=== PATIENT | female | born 1935 | race Caucasian/White ===

== ENCOUNTER → 2017-02-25 | Outpatient (CLI) | payer OTHER | LOC: FIMAGING 11:02 | PROVIDERS: ATTEND Orthopaedic Surgery Orthopaedic Surgery of the Spine | DX: M41.86 Other forms of scoliosis, lumbar region (principal); M43.16 Spondylolisthesis, lumbar region; M51.36 Other intervertebral disc degeneration, lumbar region ==

== ENCOUNTER 2017-03-02 05:42 | Inpatient (IN) | payer OTHER ==
--- NOTE | 2017-02-26 13:25 | GHP ---
[f rep st] PREOP HISTORY AND PHYSICAL DATE OF ADMISSION: 03/02/2017 HISTORY: Jana is a very pleasant, 81-year-old woman who saw me for a second opinion regarding severe left lower extremity pain. A number of months ago, her pain gradually began and has worsened over time. She is having a severely difficult time with ambulation. Her pain starts in the left buttock, radiates to the lateral thigh, and to the anterior leg. Mainly in the L4 distribution. She also complains of plantar foot and heel pain on the left. The patient states she went to the emergency room and had an ultrasound because they were concerned about a DVT, but per her history and per the family history this was ruled out. She complains of hypersensitivity of the left anterior leg. The patient has had physical therapy and 2 epidural steroid injections without any relief. On a 1-10 scale she rates her daily pain a 7-9. 100% of her symptoms are referable to the left lower extremity. SOCIAL HISTORY: Patient is . She lives alone. She denies use of tobacco and alcohol. PAST MEDICAL HISTORY: Type 2 diabetes mellitus, osteoarthritis, hypothyroidism , hypercholesterolemia, and hypertension. PAST SURGICAL HISTORY: Appendectomy and hysterectomy. ALLERGIES: Levaquin. MEDICATIONS: Metformin, amlodipine, levothyroxine, Levophed, enalapril, vitamin D3, and Vicodin. REVIEW OF SYSTEMS: 10-point review is negative for any pertinent positives. PHYSICAL EXAM: GENERAL: The patient is 4 feet 11 inches tall and weighs 135 pounds. She is alert and oriented x3. CARDIAC: Regular rate and rhythm without detectable murmur, rub, or gallop. LUNGS: Clear to auscultation. She has no wheezing or rhonchi. NEUROLOGIC: Strength of bilateral lower extremities to be 5/5 throughout. Light touch is diminished in the left medial leg and lateral leg. Patellar reflex on the left is 1/4. Right patellar reflex is 2+ over 4. Bilateral Achilles reflexes are 2/4. The patient is very hypersensitive to touch along the medial left leg in the L4 distribution. Straight leg raising is negative x2 for radiculopathy. Lumbar spine is tender to palpation near the L4-5 junction. She is exquisitely tender in the left sciatic notch. She does have a mild scoliosis on exam as well. Her gait shows a very forward flexed position. RADIOGRAPHIC STUDIES: MRI shows a grade 1 degenerative spondylolisthesis at L4- 5 with foraminal stenosis on the left. She has profound central stenosis at L4- 5 with what appears to be a left L4-5 foraminal disk herniation. At L3-4, she has [id number] stenosis centrally. There is severe facet arthropathy at L4-5. IMPRESSION: 1. Profound spinal stenosis at lumbar 4-5 with left foraminal disk herniation. 2. Left lumbar 4 radiculopathy. 3. Grade 1 degenerative spondylolisthesis at lumbar 4-5 and scoliosis. 4. Onfm-[id number]-mwtktqje central stenosis at lumbar 3-4. PLAN: The patient has elected to undergo surgery. My recommendation would be an L3-4, L4-5 partial laminectomy, left L4-5 foraminal diskectomy, and posterior fusion with instrumentation using interspinous process devices. Potential risks, benefits, possible complications have been thoroughly discussed with the patient including, but not limited to, dural tear with CSF leak, meningitis, nerve root injury, partial or complete paralysis, infection, need for further surgery, lack of improvement of symptomatology, junctional breakdown, loosening of internal fixation, footdrop, DVT, PE, pneumonia, stroke , heart attack, hemorrhage, blindness, and . Patient's questions were answered thoroughly. I would anticipate a 2-night hospital stay, including the day and night of her surgery. /[id number]/MODL MTDD
[2017-03-02] MEDS ORDERED: ceFAZolin 2 GM/DEXTROSE 100 ML IV ONE (06:04)
[2017-03-02] MEDS ORDERED: LR 1,000 ML IV ONE (06:24)
[2017-03-02] MEDS ORDERED: LIDOCAINE 1% 2 ML INJ ID PRN (06:24)
--- NOTE | 2017-03-02 06:52 | PDANEPAE ---
ANE History of Present Illness Lumbar stenosis with left leg pain ANE Past Medical History - Cardiovascular History Hx Hypertension: Yes Hx CHF / Valvular Disease: Yes - Pulmonary History Hx COPD: No Hx Asthma/Reactive Airway Disease: No Hx Recent Upper Respiratory Infection: No Hx Oxygen in Use at Home: No Hx Sleep Apnea: No Sleep Apnea Screening Result - Last Documented: Negative - Neurologic History Hx Cerebrovascular Accident: No Hx Seizures: No Hx Dementia: No Neurologic History Comment: 9-10 yrs ago ?tia nothing since - Endocrine History Hx Diabetes: Yes Endocrine History Comment: type11 - Renal History Hx Renal Disorders: No - Liver History Hx Hepatic Disorders: No - Neurological & Psychiatric Hx Hx Neurological and Psychiatric Disorders: No - Cancer History Hx Cancer: No - Congenital Disorder History Hx Congenital Disorders: No - GI History Hx Gastrointestinal Disorders: No - Other Health History Other Health History: none - Chronic Pain History Chronic Pain: No - Surgical History Prior Surgeries: none ANE Review of Systems Review of Systems: - Exercise capacity METS (RN): 4 METS ANE Patient History - Allergies Allergies/Adverse Reactions: levofloxacin [From Levaquin] Allergy (Verified 02/24/17 11:41) JITTERY - Home Medications Home medications: home medication list seen and reviewed Home Medications: Calcium Carbonate [Oyster Shell Calcium 500 mg (*)] 500 mg PO DAILY 02/24/17 [ Last Taken 02/23/17] Cholecalciferol Vit D3 [Vitamin D3 2000 units tab (OTC)] 2,000 units PO DAILY [Last Taken 02/23/17] Enalapril Maleate [Vasotec 20 MG (*)] 40 mg PO DAILY 02/24/17 [Last Taken 04:15] Gabapentin [Neurontin 100 MG (*)] 100 mg PO HS 02/24/17 [Last Taken Unknown] Hydrocodone/Acetaminophen [[place] 5/325 (*)] 1 each PO HS PRN 02/24/17 [Last Taken Unknown] Levothyroxine [Synthroid 75 mcg (*)] 75 mcg PO DAILY06 02/24/17 [Last Taken 08/14 04:15] Lovastatin 20 mg PO DAILY 02/24/17 [Last Taken 03/01/17 20:00] amLODIPine BESYLATE [Norvasc 2.5 mg (*)] 2.5 mg PO DAILY 02/24/17 [Last Taken 04:15] metFORMIN HCL [Glucophage 500 mg (*)] 500 mg PO BIDMEAL 02/24/17 [Last Taken 07/17 20:00] - NPO status NPO Since - Liquids (Date): 03/01/17 NPO Since - Liquids (Time): 23:59 NPO Since - Solids (Date): 03/01/17 NPO Since - Solids (Time): 23:59 - Anes Hx Anes Hx: no prior problems (Last anesthesia about 30 years ago) - Smoking Hx Smoking Status: Never smoked - Family Anes Hx Family Anes Hx: neg - N/A Family Hx Anesthesia Complications: none ANE Labs/Vital Signs - Vital Signs Blood Pressure: 153/91 Heart Rate: 77 Respiratory Rate: 20 O2 Sat (%): 95 Height: 149.86 cm Weight: 60.781 kg ANE Physical Exam - Airway Neck exam: decreased ROM, short neck Mallampati Score: Class 3 Mouth exam: normal dental/mouth exam (Upper caps), small mouth opening - Pulmonary Pulmonary: no respiratory distress - Cardiovascular Cardiovascular: regular rate and rhythym - ASA Status ASA Status: II ANE Anesthesia Plan Anesthesia Plan: general endotracheal anesthesia (Will have glidescope)
[2017-03-02] MEDS ORDERED: CHLORHEXIDINE GLUC HIBICLENS 118 ML BTL TP ONE (07:04)
[2017-03-02] MEDS ORDERED: THROMBIN (BOVINE) 20,000 UNIT VIAL TP ONE (07:04)
[2017-03-02] MEDS ORDERED: methylPREDNISolone SOD SUCC 125 MG/2 ML VIAL ONE (07:05)
[2017-03-02] MEDS ORDERED: BUPIVACAINE 0.25% 30 ML SDV ONE (07:05)
[2017-03-02] MEDS ORDERED: BUPIVACAINE 0.5% 30 ML SDV ONE (07:05)
[2017-03-02] MEDS ORDERED: BACITRACIN 50,000 UNITS/10 ML SYR IRR ONE (07:06)
[2017-03-02] MEDS ORDERED: PROPOFOL 200 MG/20 ML VIAL ONE (07:09)
[2017-03-02] MEDS ORDERED: fentaNYL 100 MCG/2 ML INJ ONE ×3 (07:09→10:49)
[2017-03-02] MEDS ORDERED: PROPOFOL/EMULSION 500 MG/50 ML BOTTLE IV ONE (07:09)
[2017-03-02] MEDS ORDERED: REMIFENTANIL HCL 1 MG VIAL ONE (07:09)
--- NOTE | 2017-03-02 07:12 | PDHPUP ---
History & Physical Update H&P update statement: This history and physical update is based on an assessment of the patient which was completed after admission or registration (within 24 hours), but prior to the surgery/procedure. H&P update: H&P reviewed & patient examined, no change in patient's condition since H&P completed
[2017-03-02] MEDS ORDERED: BISACODYL 10 MG SUPP PR PRN (07:46)
[2017-03-02] MEDS ORDERED: ONDANSETRON DISINTEGRATING 4 MG TAB PO PRN (07:46)
[2017-03-02] MEDS ORDERED: ONDANSETRON 4 MG/2 ML VIAL IVP PRN ×2 (07:46→09:46)
[2017-03-02] MEDS ORDERED: D50W 25 GM/50 ML SYR IVP PRN (07:46)
[2017-03-02] MEDS ORDERED: MAGNESIUM HYDROXIDE 30 ML UDCUP PO PRN (07:46)
[2017-03-02] MEDS ORDERED: LACTULOSE 20 GM/30 ML UDCUP PO PRN (07:46)
[2017-03-02] MEDS ORDERED: diphenhydrAMINE 25 MG CAP PO PRN (07:46)
[2017-03-02] MEDS ORDERED: DEXAMETHASONE 4 MG/ML VIAL ONE (07:52)
[2017-03-02] MEDS ORDERED: HYDROCODONE/APAP 5/325 TAB PO PRN (07:53)
[2017-03-02] MEDS ORDERED: DIAZEPAM 5 MG TAB PO PRN (07:54)
[2017-03-02] MEDS ORDERED: DIAZEPAM 10 MG/2 ML SYR IVP PRN (07:54)
[2017-03-02] MEDS ORDERED: NS 1,000 ML IV SCH (08:00)
[2017-03-02] MEDS ORDERED: ROCURONIUM 50 MG/5 ML VIAL ONE (08:05)
[2017-03-02] MEDS ORDERED: LIDOCAINE 2% 5 ML SDV ONE (08:05)
[2017-03-02] MEDS ORDERED: ONDANSETRON 4 MG/2 ML VIAL ONE (08:10)
[2017-03-02] MEDS ORDERED: AVITENE POWDER 1 GM JAR TP ONE (08:11)
[2017-03-02] MEDS ORDERED: epHEDrine SULFATE 10 MG/ML SYR ONE (08:30)
[2017-03-02] MEDS ORDERED: D10W 250 ML PRN HYPOGLYCEMIA IV (09:00)
[2017-03-02] MEDS ORDERED: VASOPRESSIN 20 UNIT/ML VIAL ONE (09:41)
[2017-03-02] MEDS ORDERED: SUGAMMADEX SODIUM 200 MG/2 ML VIAL IVP ONE (09:42)
[2017-03-02] MEDS ORDERED: NALOXONE HCL 0.4 MG/ML INJ IVP PRN (09:46)
--- NOTE | 2017-03-02 09:57 | POSTOPPROG ---
Post Op Note Date of Operation: 03/02/17 Surgeon: Sara Beal [employer] Internship: Ambreen Tate SA Anesthesiologist: MD Les Anesthesia: GET(General Endotracheal) Pre-op Diagnosis: L3-5 stenosis with claudication, L4-5 spondylolisthesis Post-op Diagnosis: same Indication: LLE pain Procedure: L3-5 partial lami, post fusion, instrum with ISPD. Findings: severe stenosis L4-5 and mod stenosis L3-4 Inf/Abcess present in the surg proc area at time of surgery?: No Depth: Deep Incisional (Fascial) EBL: 50 cc Total fluids administered: 800 cc Complications: None. No changes in SSEPs, MEPs, and EMGs Drains: Erick Taveras
--- NOTE | 2017-03-02 10:24 | POSTANESTH ---
Post Anesthetic Evaluation Cardiovascular Status: Normal, Stable, Tx Hyper/Hypo-tension Respiratory Status: Normal, Stable Level of Consciousness/Mental Status: Can Participate in Eval, Alert and Oriented Pain Control: Adequate, Prn Tx Ordered Nausea/Vomiting Control: Adequate, Prn Tx Ordered Complications Possibly Related to Anesthesia: None Noted
[2017-03-02] MEDS: fentaNYL 100 MCG/2 ML INJ IVP PRN ×4 (10:25→10:56)
[2017-03-02] MEDS: INSULIN REGULAR HUMAN 100 UNIT/ML SC SCH ×3 (12:03→22:53)
[2017-03-02] MEDS: metFORMIN HCL 500 MG TAB PO SCH ×2 (12:15→18:48)
[2017-03-02] MEDS: CALCIUM CARBONATE 500 MG TAB PO SCH (12:16)
[2017-03-02] MEDS: ENALAPRIL MALEATE 20 MG TAB PO SCH (12:16)
[2017-03-02] MEDS: CHOLECALCIFEROL VIT D3 2,000 UNITS TAB/CAP PO SCH (12:16)
[2017-03-02] MEDS: PRAVASTATIN SODIUM 20 MG TAB PO SCH (12:18)
[2017-03-02] MEDS: SENNOSIDES/DOCUSATE SODIUM TAB PO SCH ×2 (12:19→22:25)
--- NOTE | 2017-03-02 12:33 | GOP ---
[f rep st] OPERATIVE REPORT DATE OF OPERATION: 03/02/2017 SURGEON: Sara Lombardi MD ANIMATION ARTIST: Conner Tate SA ANESTHESIA: General endotracheal intubation. ANESTHESIOLOGIST: Conner Saldana MD PREOPERATIVE DIAGNOSIS: 1. Profound spinal stenosis at L4-5 with grade 1 degenerative spondylolisthesis. 2. Mild to moderate L3-4 spinal stenosis. 3. Left L4 radiculopathy. POSTOPERATIVE DIAGNOSIS: 1. Profound spinal stenosis at L4-5 with grade 1 degenerative spondylolisthesis. 2. Mild to moderate L3-4 spinal stenosis. 3. Left L4 radiculopathy. PROCEDURE PERFORMED: L3-4 and L4-5 partial laminectomies, posterolateral arthrodesis, and nonsegmental instrumentation using interspinous process devices. FINDINGS: Profound spinal stenosis L4-5 and moderate at L3-4. There was also a grade 1 spondylolisthesis with instability and a left L4-5 facet joint cyst. ESTIMATED BLOOD LOSS: 50 cc. INDICATIONS: The patient is a pleasant 81-year-old woman who came to me for a second opinion. She has had a several month history of gradual worsening left lower extremity pain without any preceding trauma. Her pain begins in the buttock, radiates to the lateral thigh and typically toward the anterior leg. She has had 2 epidural steroid injections, as well as physical therapy. On MRI she was found to have profound spinal stenosis at L4-5 with a spondylolisthesis and then mild to moderate stenosis at L3-4. She has elected to undergo surgery. No guarantees were given in regard to surgical outcome. Potential risks, benefits, possible complications have been thoroughly discussed including , but not limited to, dural tear with CSF leak, meningitis, nerve root injury, partial or complete paralysis, infection, need for further surgery, junctional breakdown, lack of improvement in symptomatology, hematoma, cauda equina syndrome, DVT, PE, pneumonia, stroke, heart attack, hemorrhage, blindness, and . The patient's questions were answered thoroughly preoperatively, and no guarantees were given in regard to surgical outcome. DESCRIPTION OF PROCEDURE: After obtaining both written and verbal consent from the patient, she was brought to the operating room, where she underwent a general endotracheal intubation. Patient received IV antibiotics. Reynolds catheter was placed. A lateral fluoroscopic x-ray was obtained for localization. The lumbar spine was prepped and draped in normal sterile fashion. A lateral fluoroscopic x-ray showed the metallic marker to be at the L4-5 level. A time-out was performed with the entire operating room team confirming patient's name, date of , planned surgical procedure including levels. Antibiotics were given. A sterile prep and drape was performed. A 10-blade knife was then used to create a midline posterior longitudinal incision from L3 to L5. The incision was brought down through skin and subcutaneous tissues into the overlying dorsal fascia. Paraspinal muscles were stripped in a subperiosteal fashion. Again, another x-ray confirmed localization to the L4 spinous process. Under the microscope, a rongeur was used to remove the supraspinous and the interspinous ligaments at L3-4 and L4- 5. Starting at L4-5, there was a facet joint cyst on the left that was removed and debrided with a rongeur. A 2-0 curved curette was used to create a plane between the ligamentum flavum and the epidural space. A 2 mm Kerrison was then used to create a laminotomy and increase it to a partial laminectomy. Undercutting was performed. Ligamentum flavum hypertrophy was profound causing severe central and foraminal stenosis. The foramina were decompressed and the left L5 nerve root was severely compressed due to a large osteophyte and ligamentum flavum hypertrophy. This was fully decompressed with a 2 and 3 mm Kerrison. Care was taken to protect the dura at all times. There was liz instability noted due to facet joint laxity. Then, the L3-4 level was addressed in a similar fashion. This showed moderate central stenosis. Undercutting was performed and the ligamentum flavum, which was hypertrophied, was removed with a 2 and 3 mm Kerrison. Foraminotomies were also performed at this level. Care was taken to protect the dura at all times. The exiting left L4 nerve root was also severely stenosed within the neural foramen and this was decompressed and followed out distally. At this time, the [employer] tray was utilized and a caliper was used to measure the distance of the interspinous space at L3-4 and L4-5. L3-4 was 8 mm and L4-5 was 10 mm. Therefore, the appropriate dual lamina locking tray device was assembled with the locking device and the set screw was placed. The 10 mm tray was first placed at the L4- 5 level with a piece of Gelfoam protecting the dura. It was tightened down per the materials engineering technician's recommendation and tightened with a screwdriver. The punchboard inserter was removed and the device showed excellent purchase of the bone which was very good quality for the patient's age. Then, an 8 mm locking device and a locking tray device were assembled and placed at L3-4, also with excellent purchase. A size large bone morphogenic protein was then prepared and packed in the posterolateral position. Also, 30 cc of crushed cancellous bone graft and 20 cc of demineralized bone matrix were packed in a posterolateral position to augment arthrodesis, in addition to the patient's autograft that was saved from the laminectomy. A 10 flat drain was placed. An AP and a lateral fluoroscopic x-ray showed excellent position of the interspinous process devices by [employer] at L3- 4 and L4-5. The wound was closed using #1 Vicryl, 0 Vicryl, and skin jack. 20 cc of 0.25% Marcaine without epinephrine was infiltrated into the subcutaneous area for postoperative pain control. Sterile dressing was applied. Lumbar warm and form corset was placed. Patient was rolled to the supine position. She was extubated in the operating room, brought to the recovery room in satisfactory condition. COMPLICATIONS: None. There were no changes in somatosensory evoked potentials, motor evoked potentials, or EMGs. POSTOPERATIVE PLAN: Close neurologic observation, close airway observation, PT , OT, and pain control. /[id number]/MODL MTDD
[2017-03-02] MEDS: ceFAZolin 2 GM/DEXTROSE 100 ML IV SCH ×2 (16:43→22:59)
[2017-03-02] MEDS: ACETAMINOPHEN 325 MG TAB PO PRN (18:03)
[2017-03-02] MEDS: GABAPENTIN 100 MG CAP PO SCH (22:25)
[2017-03-03] MEDS: ACETAMINOPHEN 325 MG TAB PO PRN (02:41)
[2017-03-03] MEDS: LEVOTHYROXINE 75 MCG TAB PO SCH (05:54)
[2017-03-03] MEDS: ceFAZolin 2 GM/DEXTROSE 100 ML IV SCH ×3 (07:57→23:06)
[2017-03-03] MEDS: metFORMIN HCL 500 MG TAB PO SCH ×2 (07:58→17:45)
[2017-03-03] MEDS: oxyCODONE IR 5 MG TAB PO PRN ×4 (08:03→21:32)
[2017-03-03] MEDS: INSULIN REGULAR HUMAN 100 UNIT/ML SC SCH ×4 (08:15→22:26)
[2017-03-03] MEDS: PRAVASTATIN SODIUM 20 MG TAB PO SCH (09:27)
[2017-03-03] MEDS: ENALAPRIL MALEATE 20 MG TAB PO SCH (09:27)
[2017-03-03] MEDS: CHOLECALCIFEROL VIT D3 2,000 UNITS TAB/CAP PO SCH (09:27)
[2017-03-03] MEDS: SENNOSIDES/DOCUSATE SODIUM TAB PO SCH ×2 (09:27→21:31)
[2017-03-03] MEDS: CALCIUM CARBONATE 500 MG TAB PO SCH (09:27)
--- NOTE | 2017-03-03 11:52 | SOAPPROG ---
SOAP Progress Note Assessment/Plan: Assessment: Pt doing ok. Had significant nausea, then pain pills caused sedation. Pain main issue now. Plan: 03/03/17 11:49 Cont PT and OT. Pt will likely need SNF transfer on Wednesday a.m. Subjective: Pt discussed pain med issue. Leg pain gone. Objective: Vital Signs Temp Pulse Resp BP Pulse Ox 36.8 C 69 14 120/61 100 03/03/17 07:31 03/03/17 07:31 03/03/17 07:31 03/03/17 09:27 03/03/17 07:31 03/02/17 03/03/17 03/04/17 05:59 05:59 05:59 Intake Total 2600 100 Output Total 1950 300 Balance 650 -200 Lumbar drain functioning properly. Pt ambulating wel with walker. A and O x 3. ICD10 Worksheet Patient Problems: Problems Problem Status Onset Spondylolisthesis, lumbar region Acute - ICD10 Problem Qualifiers (1) Spondylolisthesis, lumbar region
--- NOTE | 2017-03-03 14:52 | ASMTCMCOM ---
CM Note CM Note Notes: PT/OT rec SNF, referral sent to [facility] who accept pt for d/c Wednesday. CM to follow. Date Signed: 03/03/2017 02:51 PM Electronically Signed By:TESSIE Parham
[2017-03-03] MEDS: GABAPENTIN 100 MG CAP PO SCH (21:32)
[2017-03-04] MEDS: ceFAZolin 2 GM/DEXTROSE 100 ML IV SCH (06:23)
[2017-03-04] MEDS: LEVOTHYROXINE 75 MCG TAB PO SCH (06:23)
[2017-03-04] MEDS: oxyCODONE IR 5 MG TAB PO PRN (06:27)
[2017-03-04] MEDS: INSULIN REGULAR HUMAN 100 UNIT/ML SC SCH ×4 (09:19→22:12)
[2017-03-04] MEDS: CALCIUM CARBONATE 500 MG TAB PO SCH (10:20)
[2017-03-04] MEDS: ENALAPRIL MALEATE 20 MG TAB PO SCH (10:21)
[2017-03-04] MEDS: CHOLECALCIFEROL VIT D3 2,000 UNITS TAB/CAP PO SCH (10:22)
[2017-03-04] MEDS: PRAVASTATIN SODIUM 20 MG TAB PO SCH (10:22)
[2017-03-04] MEDS: SENNOSIDES/DOCUSATE SODIUM TAB PO SCH ×2 (10:24→20:11)
--- NOTE | 2017-03-04 10:36 | SOAPPROG ---
SOAP Progress Note Assessment/Plan: Assessment: Pt doing ok. Had significant nausea, then pain pills caused sedation. Pain main issue now. Plan: 03/03/17 11:49 Cont PT and OT. Pt will likely need SNF transfer on Wednesday a.m. 03/04/17 10:34 post op day 2 s/p L3-5 lami, post fusion, instru with ISPDs. Pt improving. Cont PT and OT then to SNF tomorrow. 03/04/17 10:36 Nursing order to remove drain L spine. Subjective: Pt has mild nausea and c/o no bowel movement. Objective: Vital Signs Temp Pulse Resp BP Pulse Ox 37.0 C 75 16 115/53 L 97 03/04/17 07:36 03/04/17 07:36 03/04/17 07:36 03/04/17 10:21 03/04/17 07:36 03/03/17 03/04/17 03/05/17 05:59 05:59 05:59 Intake Total 2600 1852 Output Total 1950 340 20 Balance 650 1512 -20 BLE motor 5/5. Yash's negative x 2. Hypersensitive to touch bilat L greater than r lat legs. Drain functioning properly. ICD10 Worksheet Patient Problems: Problems Problem Status Onset Spondylolisthesis, lumbar region Acute - ICD10 Problem Qualifiers (1) Spondylolisthesis, lumbar region
[2017-03-04] MEDS: metFORMIN HCL 500 MG TAB PO SCH ×2 (10:44→17:50)
[2017-03-04] MEDS: POLYETHYLENE GLYCOL 3350 17 GM PKT PO PRN (10:44)
[2017-03-04] MEDS: ACETAMINOPHEN 325 MG TAB PO PRN ×2 (13:20→20:11)
[2017-03-04] MEDS: GABAPENTIN 100 MG CAP PO SCH (20:11)
[2017-03-05 00:49] VITALS: RESP 16
[2017-03-05] MEDS: oxyCODONE IR 5 MG TAB PO PRN (04:53)
[2017-03-05] MEDS: LEVOTHYROXINE 75 MCG TAB PO SCH (05:52)
[2017-03-05] MEDS: INSULIN REGULAR HUMAN 100 UNIT/ML SC SCH ×2 (08:01→13:12)
[2017-03-05] MEDS: SENNOSIDES/DOCUSATE SODIUM TAB PO SCH (08:11)
[2017-03-05] MEDS: CALCIUM CARBONATE 500 MG TAB PO SCH (08:13)
[2017-03-05] MEDS: PRAVASTATIN SODIUM 20 MG TAB PO SCH (08:13)
[2017-03-05] MEDS: ENALAPRIL MALEATE 20 MG TAB PO SCH (08:13)
[2017-03-05] MEDS: metFORMIN HCL 500 MG TAB PO SCH (08:13)
[2017-03-05] MEDS: CHOLECALCIFEROL VIT D3 2,000 UNITS TAB/CAP PO SCH (08:13)
[2017-03-05] MEDS: POLYETHYLENE GLYCOL 3350 17 GM PKT PO PRN (08:21)
--- NOTE | 2017-03-05 10:38 | SOAPPROG ---
SOAP Progress Note Assessment/Plan: Assessment: Pt doing ok. Had significant nausea, then pain pills caused sedation. Pain main issue now. Plan: 03/03/17 11:49 Cont PT and OT. Pt will likely need SNF transfer on Wednesday a.m. 03/04/17 10:34 post op day 2 s/p L3-5 lami, post fusion, instru with ISPDs. Pt improving. Cont PT and OT then to SNF tomorrow. 03/04/17 10:36 Nursing order to remove drain L spine. 03/05/17 10:35 Pt concerned about no b.m. Having hypersensitivity L greater than R LE. Plan: suppository for bm, than transfer to [facility]. Subjective: Pt complains of no bowel movement Objective: Vital Signs Temp Pulse Resp BP Pulse Ox 36.9 C 74 16 122/72 H 93 03/05/17 07:18 03/05/17 07:18 03/05/17 07:18 03/05/17 08:13 03/05/17 07:18 03/04/17 03/05/17 03/06/17 05:59 05:59 05:59 Intake Total 1852 1040 Output Total 340 520 Balance 1512 520 BLE motor 5/5. Yash's negative x 2. Lumbar wound very clean and no erythema or drainage. ICD10 Worksheet Patient Problems: Problems Problem Status Onset Spondylolisthesis, lumbar region Acute - ICD10 Problem Qualifiers (1) Spondylolisthesis, lumbar region
--- NOTE | 2017-03-05 10:46 | PDIAF ---
- Diagnosis Code Status: Full Code - Medication Management Discharge Medications: Medications to Continue on Transfer Calcium Carbonate [Oyster Shell Calcium 500 mg (*)] 500 mg PO DAILY 02/24/17 [ Last Taken 02/23/17] Cholecalciferol Vit D3 [Vitamin D3 2000 units tab (OTC)] 2,000 units PO DAILY [Last Taken 02/23/17] Enalapril Maleate [Vasotec 20 MG (*)] 40 mg PO DAILY 02/24/17 [Last Taken 04:15] Gabapentin [Neurontin 100 MG (*)] 100 mg PO HS 02/24/17 [Last Taken Unknown] Levothyroxine [Synthroid 75 mcg (*)] 75 mcg PO DAILY06 02/24/17 [Last Taken 08/14 04:15] Lovastatin 20 mg PO DAILY 02/24/17 [Last Taken 03/01/17 20:00] amLODIPine BESYLATE [Norvasc 2.5 mg (*)] 2.5 mg PO DAILY 02/24/17 [Last Taken 04:15] metFORMIN HCL [Glucophage 500 mg (*)] 500 mg PO BIDMEAL 02/24/17 [Last Taken 07/17 20:00] Acetaminophen [Tylenol 325mg (*)] 325 - 650 mg PO Q6HRS PRN tab 03/05/17 [Last Taken Unknown] Calcium Carbonate [Oyster Shell Calcium 500 mg (*)] 500 mg PO DAILY tab [Last Taken Unknown] Cholecalciferol Vit D3 [Vitamin D3 2000 units tab (OTC)] 2,000 units PO DAILY each 03/05/17 [Last Taken Unknown] Enalapril Maleate [Vasotec 20 MG (*)] 40 mg PO DAILY tab 03/05/17 [Last Taken Unknown] Gabapentin [Neurontin 100 MG (*)] 100 mg PO HS cap 03/05/17 [Last Taken Unknown ] Levothyroxine [Synthroid 75 mcg (*)] 75 mcg PO DAILY06 tab 03/05/17 [Last Taken Unknown] Ondansetron HCl Pf [Zofran 4 mg Inj (*)] 4 mg IVP Q4HRS PRN vial 03/05/17 [ Last Taken Unknown] Ondansetron Odt [Zofran Odt 4 mg (*)] 4 - 8 mg PO Q6HRS PRN tab 03/05/17 [Last Taken Unknown] Polyethylene Glycol 3350 [Miralax 17 gm (*)] 17 gm PO DAILY PRN pkt 03/05/17 [ Last Taken Unknown] Pravastatin Sodium [Pravachol] 20 mg PO DAILY tab 03/05/17 [Last Taken Unknown] Sennosides/Docusate Sodium [Senokot-S] 1 - 2 tab PO BID tab 03/05/17 [Last Taken Unknown] amLODIPine BESYLATE [Norvasc 2.5 mg (*)] 2.5 mg PO DAILY tab 03/05/17 [Last Taken Unknown] metFORMIN HCL [Glucophage 500 mg (*)] 500 mg PO BIDMEAL tab 03/05/17 [Last Taken Unknown] oxyCODONE IR [Oxycodone Ir (*)] 5 - 10 mg PO Q4HRS PRN tab 03/05/17 [Last Taken Unknown] Discharge Medications: Refer to the Discharge Home Medication list for PRN reason. PICC Care - Routine: N/A - Orders Services needed: Registered Nurse, Certified Floor Supervisor, Physical Therapy, Occupational Therapy Home Care Face to Face: Mar 05, 2017 Diet Recommendation: ADA 2000 consistent carb Diet Texture: Regular Texture Diet Reynolds: No Nolvia Stockings Discontinue Date: Pt is hypersensitive to Nolvia hose. Do NOT use nolvia hose. Wound Care Instructions: Daily dry dressing change to lumbar wound. NO ointment. Activity/Weight Bearing Restrictions: No bending, lifting, twisting. Pt to wear back brace at all times except during showers. - Follow Up Care Current Providers and Referrals: Doctor Not,On Staff, MD [Primary Care Provider] -
--- NOTE | 2017-03-05 11:19 | GDS ---
[f rep st] DISCHARGE SUMMARY Transfer to [facility] nursing [facility]. HOSPITAL COURSE: The patient is a pleasant 81-year-old woman who has had a many month history of gra dual worsening left lower extremity pain. Pain typically radiated from the buttock down the lateral thigh and toward the anterior leg. She had tried numerous nonoperative treatments including physical therapy, and 2 epidural steroid injections. On MRI she was found to have severe stenosis at L4-5 wi th spondylolisthesis and mild to moderate stenosis at L3-4. She elected to undergo surgery. On 07/2016 she was admitted, underwent a general endotracheal intubation, neuro monitoring was performed and patient underwent an L3-4 and L4-5 partial laminectomy, posterolateral arthrodesis, and nonsegmen paulino instrumentation using intraspinous process devices. 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 Surgery went well with minimal blood loss. Ne ural monitoring remained unchanged. Postoperatively, patient's left lower extremity pain improved. Although she did have some hypersensi tivity in the left greater than the right ankle and donohue which was probably due to nerve irritation. Pain control initially caused too much sedation using 2 Oxycodone at a time and therefore she ended up tolerating 1 oxycodone p.r.n. and switching it off and on with Tylenol. Strength of bilateral low er extremities remained 5/5 throughout. She was seen in PT and OT and did very well. The drain that had been placed at surgery was removed postoperatively and she had been kept on IV ant ibiotics until then. On the day of discharge her lumbar wound was clean, dry, and had no erythema, n o drainage and looked in excellent condition. The dressing had been changed. Overall, patient is doing very well and will benefit from further assisted facility as the pat ient is 81 years old and lives at home independently. Patient is being transferred to [facility] assisted facility with the following instructions: 1. Patient is to wear a lumbar warm and form corset at all times including sleeping with the excepti on she can take it off obviously for showers. She needs to avoid bending, lifting, twisting. She ne eds to avoid all anti-inflammatories for the fusion to heal. 2. Patient needs to have a daily dry dressing change. No ointment should be applied to the wound. Patient is a diabetic and her blood sugars have remained stable and good. She is mainly covered by m etformin and does not typically require sliding scale for insulin. She will stay on a 2000 calorie A DA diet. 3. Patient does have a followup appointment in my office scheduled in advance which is in her folder . If you should have any questions, please call my office at [phone] if you have any concerns. I anticipate a 1 week hospital stay in the assisted facility to get her to a very independent point so that she can go home and resume living independently. 4. I would recommend continued Colace, MiraLAX, milk of magnesia, and if need be a suppository to co ntinue bowel protocol. Also I would highly recommend oxycodone 5 mg one every 4-6 hours p.r.n., but in general the patient is only taking about 1-2 per day. She does very well with Tylenol only. Othe rwise she gets over sedated with more pain medication. 5. Patient is being transferred in satisfactory condition. . /[id number]/MODL
[2017-03-05] MEDS: ACETAMINOPHEN 325 MG TAB PO PRN ×2 (11:24→16:21)
--- NOTE | 2017-03-05 14:31 | ASMTCMCOM ---
CM Note CM Note Notes: Pt medically stable for d/c to [facility]. [facility] set up 1600 transport. GEOVANI Bowens to call report. Orders sent. Date Signed: 03/05/2017 02:30 PM Electronically Signed By:TESSIE Parham
[2017-03-05 15:30] VITALS: BP 104/59; PULSE 86; TEMP 97.8; O2SAT 91
== END 2017-03-05 16:29 | DRG 460 ==
LOC: F3N 05:42
PROVIDERS: ADMIT Orthopaedic Surgery Orthopaedic Surgery of the Spine; ATTEND Orthopaedic Surgery Orthopaedic Surgery of the Spine
PROC: 0SG1071 Fusion of 2 or more Lumbar Vertebral Joints with Autologous Tissue Substitute, Posterior Approach, Posterior Column, Open Approach (ICD-10-PCS; principal; 2017-03-02 07:15)
PROC: 01NB0ZZ Release Lumbar Nerve, Open Approach (ICD-10-PCS; principal; 2017-03-02 07:15)
PROC: 0SH00BZ Insertion of Interspinous Process Spinal Stabilization Device into Lumbar Vertebral Joint, Open Approach (ICD-10-PCS; principal; 2017-03-02 07:15)
DX: M48.061 Spinal stenosis, lumbar region without neurogenic claudication (principal); M43.16 Spondylolisthesis, lumbar region; M54.16 Radiculopathy, lumbar region; M71.38 Other bursal cyst, other site; I10 Essential (primary) hypertension
CPT/HCPCS: 97116-GP; 97162-GP; 97165-GO; 97530-GP; 97535-GO; C1713; C1762; G8978-GP-CK; G8979-GP-CI; G8987-GO-CL; G8988-GO-CJ; G8989-GO-CJ; J0690; J1100; J1815; J2405; J2704; J3010